=== PATIENT | female | born 1945 | race Caucasian/White ===

== ENCOUNTER 2018-11-07 06:27 | Day surgery (SDC) | payer MEDICARE, OTHER ==
[2018-11-07] MEDS ORDERED: Bupivacaine 0.5% 50 ML MDV ONE (06:40)
[2018-11-07] MEDS ORDERED: Lactated Ringers 1,000 ML IV SCH (07:00)
[2018-11-07] MEDS ORDERED: ceFAZolin 2 GM in Premix Bag 1 BAG IV ONE (07:00)
[2018-11-07] MEDS ORDERED: Midazolam 1 MG/ML 2 ML SDV ONE (07:25)
[2018-11-07] MEDS ORDERED: fentaNYL 100 MCG/2 ML SDV ONE (07:25)
[2018-11-07] MEDS ORDERED: Propofol 200 MG/20 ML SDV ONE (07:25)
[2018-11-07 09:31] VITALS: BP 132/76
--- NOTE | 2018-11-07 14:02 | OR ---
DATE OF PROCEDURE: 11/07/2018 PREOPERATIVE DIAGNOSIS: Severe right carpal tunnel. POSTOPERATIVE DIAGNOSIS: Severe right carpal tunnel. INTERVENTION: Release of right transverse carpal ligament. BLOOD LOSS: Minimal. COMPLICATION: None. INDICATIONS: Monse is a healthy 73-year-old, had been having some numbness, tingling, burning sensation at the median nerve territory of her hand. This has been going on the last year, quite progressive in the last month. She had an EMG done, which showed severe right carpal tunnel syndrome. Since it was persisting even with conservative treatment, it was decided to proceed with surgery. I discussed with the patient the possible risks, benefits, alternatives, and complications of surgery. The nature of the surgery was explained, all questions were answered and I had informed consent. DESCRIPTION OF PROCEDURE: Patient was brought to the OR. I did my markings on the right wrist and she did receive antibiotics preop. The HEATING ENGINEER proceeded with slight IV sedation. A tourniquet was applied at the right upper extremity in proximity, sterile prep and dressing were done in the usual manner at the right hand. Time-out was taken to identify the correct surgical site. I did a local block with Marcaine 0.5 plain subcutaneous tissue down to the transverse carpal ligament of her right wrist. The arm was elevated, tourniquet was raised to 300 mmHg. An incision was done starting at the wrist crease going ulnar to the thenar muscle belly about 2.5 cm. Dissection was carried down to the subcutaneous tissue down to the transverse carpal ligament. A slight opening was done proximally with Carmine scissors, making sure not to violate the deep structures. A groove adapter was passed underneath the transverse carpal ligament and a gradual release was done. The ligament was quite thick, but there was no significant inflammation of the nerve which was intact. The whole site was washed with saline. The skin was closed with nylon 3-0 simple suture. A compressing dressing was applied. Tourniquet was released. Blood loss was minimal. There was no complication. The patient tolerated well the operation. She was sent to recovery room in good condition. Arturo Grigsby MD /[id number]
== END 2018-11-07 09:50 | disposition home or self-care (01) ==
LOC: JP.SDS 06:27
PROVIDERS: ATTEND Orthopaedic Surgery
DX: G56.01 Carpal tunnel syndrome, right upper limb (principal); I10 Essential (primary) hypertension; F17.210 Nicotine dependence, cigarettes, uncomplicated; K21.9 Gastro-esophageal reflux disease without esophagitis; Z79.899 Other long term (current) drug therapy; Z88.8 Allergy status to other drugs, medicaments and biological substances; Z91.040 Latex allergy status; Z91.048 Other nonmedicinal substance allergy status
CPT/HCPCS: J0690; J2250; J2704; J3010; J3490; J7120

== ENCOUNTER 2023-11-02 16:10 | Emergency (ER) | payer MEDICARE, OTHER ==
[2023-11-02 17:16] LABS: CORONAVIRUS COVID-19 NAA NEGATIVE (NEGATIVE); INFLUENZA A NAA POSITIVE (NEGATIVE); INFLUENZA B NAA NEGATIVE (NEGATIVE); RESPIRATORY SYNCYTIAL VIR NAA NEGATIVE (NEGATIVE)
[2023-11-02 17:47] VITALS: BP 123/79; PULSE 80
== END 2023-11-02 17:45 | disposition home or self-care (01) ==
LOC: JP.ED 16:10
DX: J10.1 Influenza due to other identified influenza virus with other respiratory manifestations (principal); R53.1 Weakness; F17.210 Nicotine dependence, cigarettes, uncomplicated; K21.9 Gastro-esophageal reflux disease without esophagitis; Z90.49 Acquired absence of other specified parts of digestive tract; Z79.82 Long term (current) use of aspirin; Z79.899 Other long term (current) drug therapy; Z91.040 Latex allergy status; Z91.048 Other nonmedicinal substance allergy status
CPT/HCPCS: 0241U; 99284; 99283

== ENCOUNTER 2025-08-01 11:16 | Emergency (ER) | payer MEDICARE, OTHER ==
[2025-08-01 11:39] LABS: BASOPHILS ABSOLUTE AUTO 0.05 K/uL (0.00-0.10); BASOPHILS PERCENT AUTO 0.4 % (0.1-1.3); EOSINOPHILS ABSOLUTE AUTO 0.06 K/uL (0.00-0.40); EOSINOPHILS PERCENT AUTO 0.5 % (0.0-5.4); IMMATURE GRAN ABSOLUTE AUTO 0.04 K/uL (0.00-0.23); IMMATURE GRAN PERCENT AUTO 0.3 % (0.0-0.7); LYMPHOCYTES ABSOLUTE AUTO 1.80 K/uL (0.8-3.3); LYMPHOCYTES PERCENT AUTO 13.9 % (11.4-47.7); MONOCYTES ABSOLUTE AUTO 0.81 K/uL (0.20-0.90); MONOCYTES PERCENT AUTO 6.3 % (3.3-12.6); NEUTROPHILS ABSOLUTE AUTO 10.16 K/uL (1.0-7.6); NEUTROPHILS PERCENT AUTO 78.6 % (40.0-78.1); PLATELET COUNT,PLT 467 K/uL (130-375); RED BLOOD CELL COUNT 4.04 M/uL (3.77-5.24); WHITE BLOOD CELL COUNT,WBC 12.9 K/uL (3.2-11.0)
[2025-08-01 11:53] LABS: APPEARANCE,URINE SLIGHTLY CLOUDY (CLEAR); GLUCOSE,URINE NEGATIVE (NEGATIVE); OCCULT BLOOD,URINE MODERATE (NEGATIVE)
[2025-08-01 12:04] LABS: A/G RATIO 0.6 (1.2-2.2); ALANINE AMINOTRANSFERASE,ALT 25 U/L (12-78); ASPARTATE AMNIOTRANSFERASE,AST 21 U/L (15-37); BILIRUBIN TOTAL 0.5 mg/dL (0.2-1.0); BLOOD UREA NITROGEN,BUN 16 mg/dL (7-18); CARBON DIOXIDE,CO2 27 mmol/L (21-32); CHLORIDE,CL 98 mmol/L (100-108); CREATININE 0.7 mg/dL (0.6-1.0); EST CRCL DRUG DOSING (CG) 54.79 mL/min; ESTIMATED GFR 88 mL/min (>60); GLUCOSE RANDOM 105 mg/dL (74-106); POTASSIUM,K 4.2 mmol/L (3.6-5.2); PROTEIN TOTAL,TP 7.7 g/dL (6.4-8.2); SODIUM,NA 135 mmol/L (140-148)
[2025-08-01 12:05] LABS: SQUAMOUS EPITHELIAL CELLS,UR RARE /HPF; UROTHELIAL CELLS,URINE NOT SEEN /HPF
[2025-08-01] MEDS: Iopamidol 612 MG/ML 100 ML Bottle IV SCH (13:02)
[2025-08-01 15:31] VITALS: PULSE 61
[2025-08-01 16:48] VITALS: BP 165/66
== END 2025-08-01 17:23 ==
LOC: JP.ED 11:16
DX: K83.1 Obstruction of bile duct (principal); E86.0 Dehydration; K21.9 Gastro-esophageal reflux disease without esophagitis; M19.90 Unspecified osteoarthritis, unspecified site; F17.200 Nicotine dependence, unspecified, uncomplicated; Z98.84 Bariatric surgery status; Z90.49 Acquired absence of other specified parts of digestive tract; Z91.040 Latex allergy status; Z91.048 Other nonmedicinal substance allergy status; Z79.82 Long term (current) use of aspirin; Z79.899 Other long term (current) drug therapy
CPT/HCPCS: 36415; 74177; 80053; 81001; 85025; 86140; 87086; 96360; 99285; J7030; Q9967